=== PATIENT | male | born 1945 ===

== ENCOUNTER 2023-06-08 11:21 | Observation (INO) ==
[~2023-06-08 11:21] MED LIST: Naloxone 0.4 mg VIAL 0.4 mg/ml 1 ml VIAL IV PRN
[2023-06-08] MEDS ORDERED: fentaNYL 100 mcg/2 ml 50 MCG/ML VIAL ONE ×4 (11:28→17:24)
[2023-06-08] MEDS ORDERED: Ondansetron 4 mg VIAL 2 MG/ML 2 ml VIAL ONE (11:28)
[2023-06-08] MEDS ORDERED: Lidocaine 2% PF 5 ML VIAL ONE (11:28)
[2023-06-08] MEDS ORDERED: Midazolam 2 mg/2 ml VIAL 1 mg/ml 2 ml VIAL (2 mg) ONE (11:28)
[2023-06-08] MEDS ORDERED: Dexamethasone IV 4 MG/ML VIAL 1 ml VIAL ONE (11:28)
[2023-06-08] MEDS ORDERED: Propofol 10 MG/ML 20 ML BTL ONE ×2 (11:28→16:02)
[2023-06-08] MEDS ORDERED: ceFAZolin 2 GM PREMIX 2 GM/50 ML BAG ONE (11:46)
[2023-06-08] MEDS ORDERED: Tranexamic Acid 1 GM/100ML BAG 2,000 MG/200 ML BAG IV ONE (11:47)
[2023-06-08 12:18] LABS: Rapid COVID-19 Molecular Undetected (Undetected)
[2023-06-08] MEDS ORDERED: HYDROmorphone 0.5 MG/0.5 ML SYRINGE ONE (13:11)
[2023-06-08] MEDS ORDERED: Rocuronium 50 mg VIAL 10 mg/ml 5 ml VIAL (50 mg) ONE (13:11)
[2023-06-08] MEDS ORDERED: ROPIVACAINE 5 MG/ML 30 ML BTL (0.5%) ONE (13:30)
[2023-06-08] MEDS ORDERED: Sterile Water for Inj 10 ML ONE (14:46)
[2023-06-08] MEDS ORDERED: Magnesium Hydroxide LIQ 30 ML UDC PO PRN (14:56)
[2023-06-08] MEDS ORDERED: Morphine 2 MG/ML SYRINGE IV PRN (14:56)
[2023-06-08] MEDS ORDERED: Ondansetron ODT 4 mg TAB 4 MG TAB PO PRN (14:56)
[2023-06-08] MEDS ORDERED: Ondansetron 4 mg VIAL 2 MG/ML 2 ml VIAL IV PRN (14:56)
[2023-06-08] MEDS ORDERED: Lactulose 30 ml UDC PO PRN (14:56)
[2023-06-08] MEDS: fentaNYL 100 mcg/2 ml 50 MCG/ML VIAL IV PRN (17:28)
[2023-06-08] MEDS: Lactated Ringers 1000 ml BAG 1,000 ML IV SCH ×2 (18:49→18:50)
[2023-06-08] MEDS: Buffered Lidocaine 1% SYRIN 1 ml INTRADERM ONE (18:49)
[2023-06-08] MEDS: Clindamycin 600 MG/D5W BAG 600 MG/50 ML BAG IV SCH ×2 (18:49→22:59)
[2023-06-08] MEDS: Magnesium Hydroxide LIQ 30 ML UDC PO SCH (20:53)
[2023-06-09 06:40] LABS: Hematocrit 37.5 % (38-53); Hemoglobin 12.5 g/dL (13.2-16.3); Mean Platelet Volume 8.7 fL (7.5-11.2); Platelet Count 157 10^3/uL (150-450)
[2023-06-09 07:16] LABS: Calcium 9.2 mg/dL (8.6-10.3); Creatinine, Serum 1.13 mg/dL (0.67-1.17); Potassium 4.5 mmol/L (3.5-5.0); eGFR CKD-EPI 67.8 (>60)
[2023-06-09] MEDS: Vitamin THERAPEUTIC TAB PO SCH (08:06)
[2023-06-09 15:06] VITALS: BP 136/93
== END 2023-06-09 16:15 ==
LOC: INTOOBSV 11:21 → AA 11:21 → SSU 18:37
PROVIDERS: ADMIT Orthopaedic Surgery Adult Reconstructive Orthopaedic Surgery; ATTEND Orthopaedic Surgery Adult Reconstructive Orthopaedic Surgery